=== PATIENT | female | born 1985 | race Caucasian/White ===

== ENCOUNTER 2017-01-08 01:57 | Emergency (ER) ==
[2017-01-08 02:15] VITALS: BP 145/119
[2017-01-08] MEDS ORDERED: TORADOL IM ONE (02:22)
--- NOTE | 2017-01-08 02:27 | PROVIDER DOCUMENTATION ---
HPI-Headache - General Chief Complaint: Headache Stated Complaint: MIGRAINE/NUMB FACE Time Seen by Provider: 01/08/17 02:16 Source: patient Allergies/Adverse Reactions: Patient Allergies Allergy/AdvReac Type Severity Reaction Status Date / Time No Known Allergies Allergy Verified 01/08/17 02:15 Home Medications: Home Medication List Medication Instructions Recorded Confirmed Last Taken Type Omeprazole 20 mg PO DAILY #20 tablet. 03/28/16 01/08/17 Unknown Rx Amitriptyline [Elavil] 10 mg PO DAILY 01/08/17 01/08/17 Unknown History Cephalexin [Keflex] 500 mg PO TID 01/08/17 01/08/17 Unknown History Montelukast [Singulair] 10 mg PO DAILY 01/08/17 01/08/17 Unknown History - History of Present Illness-Headache Headache Location: reports: global Quality of Pain: reports: aching Severity: reports: mild Onset/Duration: reports: 1-3 hours ago Timing: reports: still present Headache Context: reports: nothing Headache History: reports: frequent headaches Any recent trauma/injury?: reports: none Headache severity at the maximum: mild Preceding Symptoms: reports: none Headache Exacerbated by:: reports: light, noise Modifying Factors: improves with: nothing Associated Symptoms: reports: denies symptoms Similar Symptoms Previously?: Yes Recently seen or treated by another doctor?: No Review of Systems - Adult - REVIEW OF SYSTEMS - ADULT Constitutional: denies: chills, fever, night sweats Eyes: denies: dry eyes, blurred vision, double vision Ears, Nose, Mouth & Throat: denies: ear pain, throat pain, throat swelling Cardiovascular: denies: chest pain, irregular heart rate, palpitations Respiratory: denies: cough, shortness of breath, wheezing Gastrointestinal: denies: abdominal pain, diarrhea, nausea, vomiting Genitourinary: denies: dysuria, flank pain, hematuria Musculoskeletal: denies: back pain, muscle aches, neck pain Integumentary: denies: hives, itching, rash Neurological: reports: headache/migraines, numbness. denies: dizziness/vertigo , loss of balance, paresthesia, slurred speech, syncope Psychiatric: denies: anxiety, alcohol/drug dependence, emotional problems All Other Systems: Reviewed and Negative Past History - Adult - PAST MEDICAL HISTORY-ADULT Review of Records: reports: Old Records Reviewed, Nursing Assessment Review, Medications Reviewed Major Childhood Illnesses: reports: denies history - PRIOR SURGERIES/PROCEDURES Surgical/Procedure History: reports: none - IMMUNIZATION STATUS Childhood Immunizations: See Nurse Assessment Flu Vaccine: See Nurse Assessment - SOCIAL HISTORY Smoking: greater than 1 pack/day Provider spent 3-5 mins advising pt. on dangers of tobacco.: Discussed manners to quit use, and f/u contacts for add'l counseling. Substance Use: none/never Alcohol Use Frequency: never Living Situation: family Physical Exam- Neurological - Physical Exam-Neuro Initial Vital Signs Reviewed: Yes General Appearance: appears well, alert, no apparent distress Eye Exam: bilateral eye: normal inspection, PERRL, EOMI HENMT: normocephalic/atraumatic, normal ENT inspection Head Injury: no evidence of injury Neck: non-tender, full range of motion, supple, normal inspection Respiratory: chest non-tender, lungs clear, normal breath sounds, no pleuratic chest pain, no respiratory distress, no accessory muscle use Cardiovascular: normal peripheral pulses, regular rate, rhythm, no edema, no gallop, no JVD, no murmur Abdominal Exam: normal bowel sounds, non tender, soft, no organomegaly, no pulsatile mass Lymphatic: no adenopathy Extremity: normal range of motion, non-tender, normal gait, normal inspection, normal capillary refill [employer] Exam: normal hearing, normal speech, PERRL Coordination/Gait: normal finger to nose, normal gait, negative Romberg's sign Motor/Sensory: no motor deficit, no sensory deficit, no pronator drift, negative Babinski's sign Integumentary: normal color, normal turgor, warm/dry Psych/Mental Status: normal mood/affect, normal thought content, normal thought process, oriented x 3 - Glascow Coma Scale Best Eye Response: (4) open spontaneously Best Verbal Response: (5) oriented Best Motor Response: (6) obeys commands Total Glascow Score: 15 Departure - Departure Time of Disposition Order: 02:26 DIAGNOSIS: History of migraine Disposition: HOME 01 Certified Medical Emergency: Emergent Condition: Good Additional Instructions: ED Follow Up Instructions: You have been treated by a care provider in the Emergency Department. These instructions are being provided to you so you can have an understanding of how to care for yourself upon discharge. Upon discharge from the Emergency Department, you are responsible for making arrangements for follow-up care by a physician of your choice. Take all prescribed medications as directed. Return to the Emergency Department immediately for any new or worsening symptoms. You may call the Physician Referral phone number at [phone] to obtain a list of Physicians who are taking new patients. Attestation - Scribe Verification/Attestation Scribe:: Chandan Bauman Acting as Scribe for:: Jaden Salinas Scribe documention review:: This chart was documented by a scribe and accurately reflects the service the provider performed and the decisions made by the provider.
[2017-01-08] MEDS ORDERED: ZOFRAN ODT PO ONE (02:49)
[2017-01-08] MEDS ORDERED: ZOFRAN ODT ONE (02:50)
[2017-01-08] MEDS ORDERED: NORFLEX IM ONE (03:23)
[2017-01-08] MEDS ORDERED: NORFLEX ONE (03:24)
== END 2017-01-08 03:44 | disposition home or self-care (01) ==
LOC: P.ED 01:57
DX: G43.909 Migraine, unspecified, not intractable, without status migrainosus (principal); R51 Headache; R20.0 Anesthesia of skin; F17.210 Nicotine dependence, cigarettes, uncomplicated; Z71.6 Tobacco abuse counseling; Z79.899 Other long term (current) drug therapy; Z79.51 Long term (current) use of inhaled steroids
CPT/HCPCS: 96372; J1885; J2360